=== PATIENT | female | born 1960 | race Caucasian/White ===

== ENCOUNTER 2024-09-07 06:39 | Emergency (ER) | payer MEDICARE, SELFPAY ==
[2024-09-07 06:41] VITALS: BP 147/88; PULSE 54; TEMP 36.8; O2SAT 99; BMI 31.5
--- NOTE | 2024-09-07 06:53 | ED_ITS ---
HPI HPI - Extremity Injury (Upper) General Chief Complaint: Extremity Injury, Upper Stated Complaint: FALL; L WRIST PAIN/INJURY Time Seen by Provider: 09/07/24 06:52 Source: patient Mode of arrival: Wheelchair Limitations: no limitations History of Present Illness HPI narrative: This 64-year-old female who is right-hand dominant presents for evaluation of a left wrist injury. The patient states that her cats carry around her yard at night like a baby. She woke up this morning and got caught up in the yard that was on the floor falling backwards and trying to break her fall with her left hand. She presents for evaluation of left wrist pain. Pain radiates from her wrist up her forearm to her elbow. She denies striking her head stating that she fell on her buttocks. Related Data Allergies Allergy/AdvReac Type Severity Reaction Status Date / Time diclofenac (From Voltaren) Allergy Mild Rash Verified 09/07/24 06:49 morphine Allergy Mild Rash Verified 09/07/24 06:49 Review of Systems ROS Status of ROS 10 or more systems reviewed and unremark able except as noted in history and below PFSH PFSH Social History Little interest or pleasure in doing things: not at all Feeling down, depressed, or hopeless: not at all Exam Narrative Exam Narrative: Vital signs and Nursing Notes reviewed: Patient is afebrile, she is mildly bradycardic with a pulse of 54, blood pressure is elevated 147/88, she is not hypoxic with pulse ox of 99% on room air General: Awake, alert, oriented, nontoxic but uncomfortable appearing female, her left arm is on a pillow with an ice pack, GCS 15, no respiratory distress HEENT: Normocephalic atraumatic, mucous membranes are moist and pink, eyes are clear, normal conjunctiva, vision is grossly intact Extremities: Tenderness to the left distal forearm/wrist area. No deformity noted. Radial pulse is brisk. Fingers are warm and sensate. Skin: Normal in appearance without rash,pallor, petechiae or purpura Neuro: No focal deficits Constitutional Vital Signs, click to edit/add: Last Vital Signs Temp 98.2 F 09/07/24 06:41 Pulse 54 L 09/07/24 06:41 Resp 18 09/07/24 06:41 BP 147/88 H 09/07/24 06:41 Pulse Ox 99 09/07/24 06:41 O2 Del Method Room Air 09/07/24 06:41 Course Vital Signs Vital signs: Vital Signs Temperature 98.2 F 09/07/24 06:41 Pulse Rate 54 L 09/07/24 06:41 Respiratory Rate 18 09/07/24 06:41 Blood Pressure 147/88 H 09/07/24 06:41 Pulse Oximetry 99 09/07/24 06:41 Oxygen Delivery Method Room Air 09/07/24 06:41 Temperature 98.2 F 09/07/24 06:41 Pulse Rate 54 L 09/07/24 06:41 Respiratory Rate 18 09/07/24 06:41 Blood Pressure 147/88 H 09/07/24 06:41 Pulse Oximetry 99 09/07/24 06:41 Oxygen Delivery Method Room Air 09/07/24 06:41 Discharge Plan Discharge Patient Disposition: Still a Patient
[2024-09-07] MEDS: HYDROMORPHONE HCL 0.5 MG/0.5 ML SYRINGE IV (07:10)
--- NOTE | 2024-09-07 07:18 | XR_ITS ---
[facility] [place] [id number] Patient Name: BRIDGETT LIVINGSTON MRN: [id number] date: 1960 Sex: F Assigned Patient Location: ED.MAIN Current Patient Location: ED.MAIN Accession/Order Number: [id number] Exam Date: 09/07/2024 08:00 Report Date: 09/07/2024 08:01 At the request of: STUART CARTER MD Procedure: XR wrist LT min 3V XR wrist LT min 3V 09/07/2024 7:19 AM SIGNS AND SYMPTOMS: ^fall , left distal forearm and wrist pain PROTOCOL: Frontal, lateral, and oblique radiographs of the left wrist COMPARISON: None FINDINGS: There is an impacted distal radius fracture with intra-articular extension. There is slight dorsal tilt of the articular surface. There is accompanying diffuse soft tissue swelling. The distal ulna is grossly intact. The carpal rows are preserved. Degenerative changes noted at the base of the thumb. XR/XR wrist LT min 3V IMPRESSION: There is an impacted distal radius fracture with intra-articular extension. There is slight dorsal tilt of the articular surface. There is accompanying diffuse soft tissue swelling. Impression dictated by: Saad Chen M.D. 09/07/2024 8:01 AM Dictation Location: [employer] Electronically authenticated by: [id number] Y Date: 09/07/2024 08:01
== END 2024-09-07 09:14 | disposition home or self-care (01) ==
PROVIDERS: Emergency Provider Emergency Medicine; PCP Family Medicine
DX: S52.572A Other intraarticular fracture of lower end of left radius, initial encounter for closed fracture (principal); W01.0XXA Fall on same level from slipping, tripping and stumbling without subsequent striking against object, initial encounter
CPT/HCPCS: 29125; 73110; 96374; 96375; 99284; J1171; J2405

== ENCOUNTER 2024-09-26 11:11 | Outpatient (OUT) | payer MEDICARE, SELFPAY ==
--- NOTE | 2024-09-26 11:12 | XR_ITS ---
[place] [id number] Patient Name: BRIDGETT LIVINGSTON MRN: [id number] date: 1960 Sex: F Assigned Patient Location: [facility] Current Patient Location: [facility] Accession/Order Number: [id number] Exam Date: 09/26/2024 12:43 Report Date: 09/26/2024 12:44 At the request of: TEQUILA WHITE DO Procedure: XR wrist LT min 3V 3 views left wrist plain film COMPARISON: 09/07/2024 HISTORY: Follow-up 5 left radius fracture ACUTE FINDINGS: Stable alignment DEGENERATIVE CHANGE: Unremarkable SOFT TISSUE FINDINGS: Unremarkable JOINT EFFUSION: None POSTOP CHANGES: No hardware complication BONE MINERALIZATION: Adequate XR/XR wrist LT min 3V IMPRESSION: Adequate fixation and bony alignment Impression dictated by: Zuhair Schultz M.D. 09/26/2024 12:44 PM Dictation [facility] [employer] Electronically authenticated by: [id number] Y Date: 09/26/2024 12:44
== END 2024-09-26 11:12 | disposition home or self-care (01) ==
LOC: RAD 11:11
PROVIDERS: PCP Family Medicine; Visit Provider Orthopaedic Surgery Orthopaedic Trauma
DX: S52.502D Unspecified fracture of the lower end of left radius, subsequent encounter for closed fracture with routine healing (principal); Z98.890 Other specified postprocedural states
CPT/HCPCS: 73110

== ENCOUNTER 2024-10-20 11:05 | Outpatient (OUT) | payer MEDICARE, SELFPAY ==
--- NOTE | 2024-10-20 | XR_ITS ---
[facility] [place] [id number] Patient Name: BRIDGETT LIVINGSTON MRN: [id number] date: 1960 Sex: F Assigned Patient Location: [facility] Current Patient Location: [facility] Accession/Order Number: [id number] Exam Date: 10/20/2024 11:08 Report Date: 10/20/2024 11:49 At the request of: CARON DOBSON DO Procedure: XR wrist LT min 3V LEFT WRIST - 4 views COMPARISON: 09/23/2024 CLINICAL DATA: Follow-up after fixation of distal radius fracture AP, lateral, oblique and ulnar deviation views were obtained. There is osteopenia. There is redemonstration of a volar plate and screws along the distal radius. The underlying radial fracture is unchanged in alignment. There is interval healing. No new fractures or dislocation are seen. There is minor degenerative change at the first carpal metacarpal joint. There is no significant soft tissue swelling. XR/XR wrist LT min 3V IMPRESSION: STABLE HEALING DISTAL RADIUS FRACTURE. Impression dictated by: Aneta Casper M.D. 10/20/2024 11:49 AM Dictation Location: [employer] Electronically authenticated by: [id number] Y Date: 10/20/2024 11:49
== END 2024-10-20 11:06 | disposition home or self-care (01) ==
LOC: RAD 11:05
PROVIDERS: PCP Family Medicine; Visit Provider Physician Assistant
DX: S52.592D Other fractures of lower end of left radius, subsequent encounter for closed fracture with routine healing (principal); Z98.890 Other specified postprocedural states
CPT/HCPCS: 73110

== ENCOUNTER 2024-12-15 07:28 | Outpatient (OUT) | payer MEDICARE, SELFPAY ==
--- OUTSIDE RECORDS SUMMARY | 2024-04-26 09:38 | XMS_ITS | Continuity of Care Document ---
Author Organization [facility] Address [address] [place] [address] Phone Care Team Providers Care Litigation Coordinator Name Role Phone Debbie Torres Unavailable Unavailable Procedures Procedure Date PSYTX PT&/FAMILY 60 MINUTES PSYTX PT&/FAMILY 60 MINUTES PSYTX PT&/FAMILY 60 MINUTES PSYTX PT&/FAMILY 60 MINUTES PSYTX PT&/FAMILY 60 MINUTES PSYTX PT&/FAMILY 60 MINUTES Advance Directives Directive Yes / No Effective Date File Name No Information Encounters Encounter Description Practice Location Reason(s) For Visit Diagnoses Date Provider Providers Copied on Encounter [facility], [address] [place] [address], [id number] , tel: [phone] Behavorial Health Adjustment disorder 5 Carlo Lewis. [address] [place] [address], [id number], [place]. tel: [phone] [facility], [address] [place] [address], [id number] , [place] tel: [phone] Behavorial Health Adjustment disorderUncomplicat ed Bereavement 4 Carlo Lewis. [address] [place] [address], [id number], [place]. tel: [phone] PSYTX PT&/FAMILY [address] [facility], [address] [place] [address], [id number] , [place] tel:[phone] Behavorial Health Adjustment disorderUncomplicat ed Bereavement 4 Carlo Lewis. [address] [place], [address], [place]. tel: [phone] PSYTX PT&/FAMILY [address] [facility], [address] [place], [place], [id number] , [place] tel: [phone] Behavorial Health Adjustment disorderUncomplicat ed Bereavement 4 Carlo Lewis. [address] [place], [address], [place]. tel: [phone] PSYTX PT&/FAMILY [address] [facility], [address] [place], [place], [id number] , [place] tel: [phone] Behavorial Health Adjustment disorderUncomplicat ed Bereavement 4 Carlo Lewis. [address] [place] [address], [id number], [place]. tel: [phone] PSYTX PT&/FAMILY [address] [facility], [address] [place] [address], [id number] , [place] tel: [phone] Behavorial Health Adjustment disorderUncomplicat ed Bereavement 4 Carlo Lewis. [address] [place] [address], [address], [place]. tel: [phone] PSYTX PT&/FAMILY [address] [facility], [address] [place] [address], [id number] , [place] tel: [phone] Behavorial Health Adjustment disorderUncomplicat ed Bereavement 4 Carlo Lewis. [address] [place] [address], [address], [place]. tel: [phone] [facility], [address] [place] [address], [id number] , [place] tel: [phone] Behavorial Health Adjustment disorderUncomplicat ed Bereavement 4 Carlo Lewis. [address] [place] [address], [address], [place]. tel: [phone] PSYTX PT&/FAMILY [address] [facility], [address] [place], [place], [id number] , [place] tel: [phone] Behavorial Health Adjustment disorderUncomplicat ed Bereavement 4 Carlo Lewis. [address] [place], [address], [place]. tel: [phone] Family History Family Member Type Diagnosis Age At Onset No Information Payers Payer name Insurance type Covered republican ID Kirby palmer(s) Lesia FOSTER [id number] Social History Type Description Quantity Date Captured Comments Sex Female Smoking Status No Information Sexual Orientation Straight or heterosexual Gender Identity Female Chief Complaint And Reason For Visit No Information Reason For Referral Reason For Referral No Information Plan Of Treatment Date Type Action Status Goal Unhealthy drug use screening . Due on due Goal CT-Colonography. Due on due Goal Influenza vaccine. Due on due Goal Depression screening. Due on due Goal HPV. Due on due Goal FIT. Due on due Goal Tdap Vaccine. Due on 2024 due Goal FOBT. Due on due Goal Lipid panel. Due on 025 due Goal Tdap. Due on due Goal FIT-DNA. Due on due Goal Zoster vaccine (). Due on due Goal Hepatitis C screening. Due o n due Goal Mammogram. Due on due Goal Colonoscopy. Due on 025 due Goal PRAPARE ASSESSMENT. Due on due Goal FIT. Due on due Goal Hepatitis C screening. Due o n due Goal Depression screening. Due on due Goal Influenza vaccine. Due on due Goal Colonoscopy. Due on due Goal PRAPARE ASSESSMENT. Due on due Goal FIT-DNA. Due on due Goal CT-Colonography. Due on due Goal Zoster vaccine (). Due on due Goal Tdap. Due on due Goal Mammogram. Due on due Goal Unhealthy drug use screening . Due on due Goal Tdap Vaccine. Due on 2023 due Goal HPV. Due on due Goal FOBT. Due on due Goal Lipid panel. Due on due Goal Mammogram. Due on due Goal Hepatitis C screening. Due o n due Goal Tdap Vaccine. Due on 2023 due Goal HPV. Due on due Goal Tdap. Due on due Goal FIT-DNA. Due on due Goal PRAPARE ASSESSMENT. Due on due Goal FOBT. Due on due Goal Lipid panel. Due on due Goal Influenza vaccine. Due on due Goal Zoster vaccine (). Due on due Goal Unhealthy drug use screening . Due on due Goal Colonoscopy. Due on due Goal Depression screening. Due on due Goal CT-Colonography. Due on due Goal FIT. Due on due Goal CT-Colonography. Due on due Goal Lipid panel. Due on due Goal Unhealthy drug use screening . Due on due Goal Mammogram. Due on due Goal FIT. Due on due Goal Depression screening. Due on due Goal Colonoscopy. Due on due Goal Tdap. Due on due Goal Hepatitis C screening. Due o n due Goal Influenza vaccine. Due on due Goal PRAPARE ASSESSMENT. Due on due Goal Zoster vaccine (). Due on due Goal Tdap Vaccine. Due on 2023 due Goal FOBT. Due on due Goal HPV. Due on due Goal FIT-DNA. Due on due Goal Colonoscopy. Due on due Goal Tdap Vaccine. Due on 2023 due Goal Hepatitis C screening. Due o n due Goal FOBT. Due on due Goal Mammogram. Due on due Goal Depression screening. Due on due Goal CT-Colonography. Due on due Goal Hep A. Due on du e Goal Zoster vaccine (). Due on due Goal Influenza vaccine. Due on due Goal HPV. Due on due Goal FIT-DNA. Due on due Goal Unhealthy drug use screening . Due on due Goal Tdap. Due on due Goal PRAPARE ASSESSMENT. Due on due Goal Lipid panel. Due on due Goal FIT. Due on due Goal Lipid panel. Due on due Goal CT-Colonography. Due on due Goal Hepatitis C screening. Due o n due Goal Influenza vaccine. Due on due Goal FIT. Due on due Goal Tdap Vaccine. Due on 2023 due Goal PRAPARE ASSESSMENT. Due on due Goal Zoster vaccine (1st). Due on due Goal Mammogram. Due on due Goal Depression screening. Due on due Goal Unhealthy drug use screening . Due on due Goal HPV. Due on due Goal FIT-DNA. Due on due Goal Hep A. Due on du e Goal Tdap. Due on due Goal FOBT. Due on due Goal Colonoscopy. Due on due Goal Tdap Vaccine. Due on 2023 due Goal Hepatitis C screening. Due o n due Goal FOBT. Due on due Goal PRAPARE ASSESSMENT. Due on due Goal Hep A. Due on du e Goal Colonoscopy. Due on due Goal FIT-DNA. Due on due Goal Tdap. Due on due Goal Unhealthy drug use screening . Due on due Goal Lipid panel. Due on due Goal HPV. Due on due Goal CT-Colonography. Due on due Goal Mammogram. Due on due Goal Zoster vaccine (1st). Due on due Goal Depression screening. Due on due Goal Influenza vaccine. Due on due Goal FIT. Due on due Goal Tdap Vaccine. Due on 2023 due Goal PRAPARE ASSESSMENT. Due on due Goal FOBT. Due on due Goal Tdap. Due on due Goal Colonoscopy. Due on due Goal FIT-DNA. Due on due Goal Mammogram. Due on due Goal HPV. Due on due Goal Influenza vaccine. Due on due Goal Unhealthy drug use screening . Due on due Goal Zoster vaccine (1st). Due on due Goal Lipid panel. Due on due Goal FIT. Due on due Goal CT-Colonography. Due on due Goal Hepatitis C screening. Due o n due Goal Depression screening. Due on due Goal Hep A. Due on du e Goal Zoster vaccine (1st). Due on due Goal Colonoscopy. Due on due Goal Depression screening. Due on due Goal Hepatitis C screening. Due o n due Goal Unhealthy drug use screening . Due on due Goal HPV. Due on due Goal Lipid panel. Due on 024 due Goal Tdap Vaccine. Due on 2023 due Goal Tdap. Due on due Goal Mammogram. Due on due Goal FIT. Due on due Goal Influenza vaccine. Due on due Goal CT-Colonography. Due on due Goal Hep A. Due on du e Goal FOBT. Due on due Goal FIT-DNA. Due on due Goal PRAPARE ASSESSMENT. Due on due History Of Present Illness Encounter Date Complaint History Of Prese nt Illness No Information Functional Status Date Functional Assessmen t No Information Instructions Date Instruction Additional Infor mation No Information Assessments Type Assessment Date assessment Adjustment disorder impression Patient reported martin t she is having difficulty adjustment to the loss of her step-daughter. Patient Care Teams Name Effective Dates (start - stop) Status Members No Information
--- NOTE | 2024-12-15 | XR_ITS ---
[facility] [place] [id number] Patient Name: BRIDGETT LIVINGSTON MRN: [id number] date: 1960 Sex: F Assigned Patient Location: [facility] Current Patient Location: [facility] Accession/Order Number: [id number] Exam Date: 12/15/2024 10:55 Report Date: 12/15/2024 12:26 At the request of: CARON DOBSON DO Procedure: XR wrist LT min 3V LEFT WRIST - 3 views CLINICAL HISTORY: S52.502A Fracture of distal end of left radius COMPARISON: 10/20/2024 FINDINGS: Stable postsurgical changes status post open reduction fixation of the distal radius with plate and screws. Hardware is intact. No lucency or loosening. Negative acute fractures or dislocation. Soft tissues unremarkable. XR/XR wrist LT min 3V IMPRESSION: STABLE ALIGNMENT STATUS POST DISTAL RADIAL ORIF. NO HARDWARE FAILURE OR LOOSENING Impression dictated by: Kelby Jamison M.D. 12/15/2024 12:26 PM Dictation Location: [place] [address] Electronically authenticated by: [id number] Y Date: 12/15/2024 12:26
--- OUTSIDE RECORDS SUMMARY | 2024-12-15 07:34 | XMS_ITS | Clinical Summary ---
Author Organization xiao qu wu you [facility] tem Address [id number] [address] [place] [address] Care Team Providers Care Patient Service Representative Name Role Phone Unavailable Primary Care Provider Unavailabl e Social History Tobacco UseTypesPacks/DayYears UsedDateSmoking Tobacco: Never AssessedChildcare AnswerDate WsptnnmxFajxixkbnMecomlu88/12/2019EmploymentAnswerDate Recorded PwhgskormvRfosqfu53/12/2019CommentsUnknownSex and Gender Information ValueDate RecordedSex Assigned at BirthNot on fileLegal JppQwwzld29/06/2015 12:10 PM EDTGender IdentityNot on fileSexual OrientationNot on file Plan of Treatment Not on file Medical Devices Not on file
--- OUTSIDE RECORDS SUMMARY | 2024-12-15 07:34 | XMS_ITS | Clinical Summary ---
Author Organization [facility] Address [address] [place] [address] Care Team Providers Care Land Commissioner Name Role Phone Unavailable Primary Care Provider Unavailabl e Allergies Active AllergyReactionsCriticalityNoted LkpoMakmgwtiVicyqxmtMcyiagl94/18/2014 Medications MedicationSigDispense QuantityRefillsLast FilledStart DateEnd DateStatus duloxetine (CYMBALTA) 60 mg ORAL capsule Take 30 mg by mouth once daily.ctive pantoprazole (PROTONIX) 40 mg ORAL tablet Take 1 tablet by mouth once daily.ctive tiZANidine HCl 4 mg capsule Take 4 mg by mouth once daily. Take 1 1/2 tabs to 2 tabs daily at bedtimeActive traMADol 50 mg tablet Take 50 mg by mouth every 8 hours as needed.Active HYDROcodone-acetaminophen 5-325 mg per tablet Take 1 tablet by mouth as needed.Active pregabalin (LYRICA) 25 mg capsule Take 1 capsule by mouth three times daily. 90 capsule ctive topiramate (TOPAMAX) 25 mg tablet Take 1 tablet by mouth daily at bedtime. Increase after 1 week to 1 twice a day, and then to two twice a day. 120 tablet ctive Family History Medical HistoryRelationCommentsMultiple SclerosisNo Family History Social History Tobacco UseTypesPacks/DayYears UsedDateSmoking Tobacco: FormerCigarettesQuit: 02/10/2008lcohol UseStandard Drinks/WeekCommentsNo0 (1 standard drink = 0.6 oz pure alcohol)CommentsUnknownSex and Gender InformationValueDate Recorded Sex Assigned at BirthNot on fileLegal KghYkdghd31/02/2012 10:11 AM ESTGender IdentityNot on fileSexual OrientationNot on file Last Filed Vital Signs Vital SignReadingTime TakenCommentsBlood Nzrxdmzt977/8708/26/2013 9:56 AM EDT Zpakx671808/26/2013 9:56 AM EDTTemperature--Respiratory Rate--Oxygen Saturation-- Inhaled Oxygen Concentration--Uhqnov861.4 kg (283 lb)08/26/2013 9:56 AM EDT Height--Body Mass Index-- Plan of Treatment Health MaintenanceDue DateLast DoneCommentsAnxiety Whxpkmkro39/10/1978Depression Qoyakllme67/10/1978HIV Elreooloe03/10/1978Hepatitis C Trqabrrpx39/10/1978 DTaP,Tdap,Td Vaccine (1 - Tdap)04/18/1978Mammogram Ceqdsufpc82/10/2000CT Lbyzxpkpsnyi16/10/2005Cologuard (FIT-DNA)04/18/20047746Jfcqsnnyrgy32/10/2005 Colorectal Cancer Tjwzgfvdl89/10/2005Diabetes Hbondvzgp01/10/2005Fecal Occult Blood04/18/2004Lipid Iscfockjv45/10/9836Nunydqodocbcf95/10/2005Pneumococcal Vaccine: 50+ (1 of 1 - PCV)04/18/2009Shingrix Vaccine (1 of 2)04/18/2009dvance Directive Bmwfhhbbcr22/10/2025Bone Density Ukfcvrnow04/10/2025ovid-19 Vaccine (1 - 2024-26 season)2024Influenza Vaccine (#1)2024RSV Vaccine (1 - 1-dose 75+ series)04/18/2034 Insurance MemberSubscriberPlan / Payer (Effective 2013-Present)Name:Karen Mack Relation to Subscriber:SelfName:Karen Mack Payer ID:[id number] (NAIC) Type:SHELBI Address: [facility] [address] [place] [id number]
--- OUTSIDE RECORDS SUMMARY | 2024-12-15 07:34 | XMS_ITS | Clinical Summary ---
Author Organization [facility] Address [address] [place] [address] Care Team Providers Care Construction Equipment Operator Name Role Phone Unavailable Primary Care Provider Unavailabl e Active Problems ProblemNoted DateDiagnosed DateLeft wrist pain5Closed fracture of left distal cevdfo2010/27/2024 Encounters DateTypeDepartmentCare KmphOicsdpftgqq76/02/2025 8:00 AM EDTTreatment [facility] [address] [facility] [address] [place] [address] Consuelo Voss, OT Closed fracture of distal end of left radius, unspecified fracture morphology, initial encounter (Primary Dx); Left wrist pain5Bamboo flowsheet [facility] [address] [facility] [address] [place] [address] Consuelo Voss, OT 11/10/20245787Mwvuqp90/25/2025 8:00 AM EDTTreatment [facility] [address] [facility] [address] [place] [address] Consuelo Voss, OT Closed fracture of distal end of left radius, unspecified fracture morphology, initial encounter (Primary Dx); Left wrist pain5Bamboo flowsheet [facility] [address] [place] [address] [place] [address] Consuelo Voss, OT 11/03/20243059Fhflqb94/18/2025 8:00 AM EDTEvaluation [facility] [address] [place] [address] [place] [address] Shanika Consuelo, OT Closed fracture of distal end of left radius, unspecified fracture morphology, initial encounter (Primary Dx); Left wrist pain10/27/2024Plan of Care Documentation [facility] [address] [facility] [address] [place] [address] 10/27/2024amboo flowsheet [facility] [address] [facility] [address] [place] [address] Dayanarakaren Consuelo, OT 10/27/2024Travelfrom Last 3 Months Social History Tobacco UseTypesPacks/DayYears UsedDateSmoking Tobacco: Never Assessed CommentsUnknownSex and Gender InformationValueDate RecordedSex Assigned at Not on fileLegal BhcJtfkyl99/15/2023 7:20 PM EDTGender IdentityNot on fileSexual OrientationNot on file Plan of Treatment Health MaintenanceDue DateLast DoneCommentsCT Bcsxqlheyjof07/10/1960Colonoscopy 1959Colorectal Cancer Gqsxydxzz17/10/1960FIT-DNA1959FIT1959 FOBT1959 7720Ihosalscckqds79/10/1960Pap Smear04/18/1980Cervical Cancer Rxhdkphbr76/10/1990HPV/Ogrmqy2604/18/19898051Lkurotbca45/10/2000Pneumococcal Vaccine: 65+ Years (1 of - PCV)04/18/2009COVID-19 Vaccine (2024- season) 501/10/2021, 06/04/2020, 05/11/2020Influenza Vaccine (#1)2024 01/12/2020 Insurance
== END 2024-12-15 07:29 | disposition home or self-care (01) ==
LOC: RAD 07:28
PROVIDERS: PCP Family Medicine; Visit Provider Physician Assistant
DX: S52.502D Unspecified fracture of the lower end of left radius, subsequent encounter for closed fracture with routine healing (principal)
CPT/HCPCS: 73110